=== PATIENT | male | born 1950 | race Caucasian/White ===

== ENCOUNTER 2024-03-24 18:02 | Inpatient (IN) | payer BC, MEDICAID ==
[~2024-03-24] VITALS: Ht 167.6 cm; Wt 54.4 kg
[2024-03-24 18:40] LABS: BASOPHILS % (AUTO) 1.1 % (0.0-2.0); EOSINOPHILS # (AUTO) 0.1 K/uL (0.0-0.7); HEMATOCRIT 34.1 % (36.7-47.1); HEMOGLOBIN 10.9 g/dL (12.5-16.3); LYMPHOCYTES # (AUTO) 1.8 K/uL (0.8-4.8); LYMPHOCYTES % (AUTO) 41.1 % (20.5-51.5); MEAN CORPUSCULAR HEMOGLOBIN 28.9 uug (23.8-33.4); MEAN CORPUSCULAR HGB CONC 32 g/dL (32.5-36.3); MEAN CORPUSCULAR VOLUME 90.5 fL (73.0-96.2); MONOCYTES # (AUTO) 0.5 K/uL (0.1-1.30); MONOCYTES % (AUTO) 11.5 % (0.0-11.0); NEUTROPHILS # (AUTO) 1.9 K/uL (1.8-8.9); NEUTROPHILS % (AUTO) 43.3 % (38.5-71.5); PLATELET COUNT (AUTO) 221 K/uL (152-348); RED BLOOD CELL COUNT(AUTO) 3.77 MIL/uL (4.06-5.63); RED CELL DISTRIBUTION WIDTH 13.9 % (12.1-16.2); WHITE BLOOD COUNT (AUTO) 4.3 K/uL (3.6-10.2)
[2024-03-24 18:46] LABS: CALCIUM 7.6 mg/dL (8.5-10.1); CARBON DIOXIDE 28 mmol/L (21-32); CHLORIDE 110 mmol/L (98-107); DIFFERENTIAL COMMENT 1; GLUCOSE 80 mg/dL (74-106); POTASSIUM 3.6 mmol/L (3.5-5.1); SODIUM SERUM 146 mmol/L (136-145); UREA NITROGEN, BLOOD 15 mg/dL (7-18)
[2024-03-24] MEDS: IV NORMAL SALINE 1000 ML BAG IV ONE (18:48)
[2024-03-24 18:52] LABS: ACETAMINOPHEN 3.1 ug/mL (10-30)
[2024-03-24 18:58] LABS: ETHANOL < 3 MG/DL (0-10)
[2024-03-24 18:59] LABS: ALANINE AMINOTRANSFERASE 61 U/L (16-63); ALBUMIN 2.7 g/dL (3.4-5.0); ALKALINE PHOSPHATASE 73 U/L (50-136); ASPARTATE AMINOTRANSFERASE 65 U/L (15-37); BILIRUBIN,DIRECT 0.2 mg/dL (0.0-0.2); BILIRUBIN,TOTAL 0.5 mg/dL (0.2-1.0); NT-PRO BNP 337 pg/mL (0-125); TOTAL PROTEIN, SERUM 5.8 g/dL (6.4-8.2)
[2024-03-24] MEDS ORDERED: LIDOCAINE 2% (GLYDO= UROJET) 10 ML JELLY MM ONE (20:45)
[2024-03-24] MEDS: LIDOCAINE 2% (GLYDO= UROJET) 10 ML JELLY MM ONE (20:50)
[2024-03-24 21:15] LABS: *BILIRUBIN,URIN NEGATIVE (NEGATIVE); *BLOOD, URINE NEGATIVE (NEGATIVE); *CLARITY,URINE CLEAR (CLEAR); *COLOR,URINE YELLOW (YELLOW); *KETONES,URINE NEGATIVE (NEGATIVE); *PROTEIN,URINE NEGATIVE (NEGATIVE); *UROBILINOGEN,URINE 0.2 E.U./dl (NORMAL); LEUKOCYTE ESTERASE ,URINE NEGATIVE (NEGATIVE); NITRITE, URINE NEGATIVE (NEGATIVE); PH,URINE 7.5 (5.0-8.0); UGLUCOSE NEGATIVE (NEGATIVE)
[2024-03-24 21:31] LABS: *AMPHETAMINE, URINE NEGATIVE (NEGATIVE); *BARBITURATE, URINE NEGATIVE (NEGATIVE); *BENZODIAZEPINE, URINE NEGATIVE (NEGATIVE); *CANNABINOID, URINE NEGATIVE (NEGATIVE); *COCCAINE, URINE NEGATIVE (NEGATIVE); *OPIATE, URINE NEGATIVE (NEGATIVE); *PHENCYCLIDINE SCREEN,URINE NEGATIVE (NEGATIVE); FENTANYL, URINE NEGATIVE (NEGATIVE)
[2024-03-25] MEDS ORDERED: MAGNESIUM HYDROXIDE 30 ML LIQUID UDC PO PRN (01:15)
[2024-03-25] MEDS ORDERED: REMEDY ESSENTIAL ZINC PASTE 113 GM TP PRN (01:15)
[2024-03-25] MEDS ORDERED: ACETAMINOPHEN 500 MG TABLET PO PRN (01:30)
[2024-03-25 01:50] VITALS: BP 127/81; TEMP 97.8; O2SAT 100
[2024-03-25] MEDS: ACETAMINOPHEN 325 MG TABLET PO PRN (02:19)
[2024-03-25] MEDS: GABAPENTIN 300 MG CAPSULE PO SCH (02:19)
[2024-03-25] MEDS: IV 1/2NS 1000 ML 1,000 ML IV PRN (02:25)
[2024-03-25 04:00] VITALS: BP 114/68; TEMP 99.3; O2SAT 95
[2024-03-25 07:02] LABS: BASOPHILS % (AUTO) 0.7 % (0.0-2.0); EOSINOPHILS # (AUTO) 0.2 K/uL (0.0-0.7); EOSINOPHILS % (AUTO) 2.7 % (0.0-7.0); HEMATOCRIT 36.3 % (36.7-47.1); HEMOGLOBIN 11.7 g/dL (12.5-16.3); LYMPHOCYTES # (AUTO) 1.5 K/uL (0.8-4.8); LYMPHOCYTES % (AUTO) 25.1 % (20.5-51.5); MEAN CORPUSCULAR HEMOGLOBIN 29.3 uug (23.8-33.4); MEAN CORPUSCULAR HGB CONC 32 g/dL (32.5-36.3); MEAN CORPUSCULAR VOLUME 90.6 fL (73.0-96.2); MONOCYTES # (AUTO) 0.5 K/uL (0.1-1.30); MONOCYTES % (AUTO) 8.5 % (0.0-11.0); NEUTROPHILS # (AUTO) 3.9 K/uL (1.8-8.9); PLATELET COUNT (AUTO) 223 K/uL (152-348); RED CELL DISTRIBUTION WIDTH 14.3 % (12.1-16.2); WHITE BLOOD COUNT (AUTO) 6.2 K/uL (3.6-10.2)
[2024-03-25 07:46] LABS: DIFFERENTIAL COMMENT 1
[2024-03-25 07:57] VITALS: BP 118/77; TEMP 98.4; O2SAT 100
[2024-03-25 07:57] LABS: ALANINE AMINOTRANSFERASE 53 U/L (16-63); ALBUMIN 2.5 g/dL (3.4-5.0); ALKALINE PHOSPHATASE 65 U/L (50-136); ASPARTATE AMINOTRANSFERASE 59 U/L (15-37); BILIRUBIN,DIRECT 0.2 mg/dL (0.0-0.2); BILIRUBIN,TOTAL 0.7 mg/dL (0.2-1.0); CALCIUM 7.8 mg/dL (8.5-10.1); CARBON DIOXIDE 26 mmol/L (21-32); CHLORIDE 108 mmol/L (98-107); GLUCOSE 106 mg/dL (74-106); MAGNESIUM 2.1 mg/dL (1.8-2.4); NT-PRO BNP 379 pg/mL (0-125); PHOSPHOROUS 2.6 mg/dL (2.5-4.9); POTASSIUM 3.9 mmol/L (3.5-5.1); SODIUM SERUM 140 mmol/L (136-145); TOTAL PROTEIN, SERUM 5.7 g/dL (6.4-8.2); UREA NITROGEN, BLOOD 12 mg/dL (7-18)
[2024-03-25 11:29] VITALS: BP 112/61; TEMP 98; O2SAT 97
[2024-03-25] MEDS ORDERED: CHOL400C8 PO (14:40)
[2024-03-25] MEDS ORDERED: FOLI1TAB94 PO (14:42)
[2024-03-25] MEDS ORDERED: PYRI-6 PO (14:42)
[2024-03-25] MEDS ORDERED: LEVO100T10 PO (14:42)
[2024-03-25] MEDS ORDERED: DOCU-141 PO (14:42)
[2024-03-25] MEDS ORDERED: LEVO88TA5 PO (14:42)
[2024-03-25] MEDS ORDERED: MECL-159 PO (14:42)
[2024-03-25] MEDS ORDERED: TAMS-3 PO (14:45)
[2024-03-25] MEDS ORDERED: LORA10TA7 PO (14:45)
[2024-03-25] MEDS ORDERED: ONDA-104 PO (14:45)
[2024-03-25] MEDS ORDERED: GABA300C PO (14:45)
[2024-03-25] MEDS ORDERED: ROPI1TAB6 PO (14:45)
[2024-03-25] MEDS ORDERED: HYDR-4174 RC (14:46)
[2024-03-25] MEDS ORDERED: SULF500T PO (14:48)
[2024-03-25 17:00] VITALS: BP 112/66; TEMP 98.3; O2SAT 97
[2024-03-25 19:20] LABS: THYROID STIMULATING HORMONE 9.877 mIU/mL (0.358-3.740)
[2024-03-25 20:00] VITALS: BP 127/74; TEMP 97.2; O2SAT 98
[2024-03-25] MEDS: TAMSULOSIN HCL 0.4 MG CAP.SR.24H PO SCH (21:39)
[2024-03-25] MEDS: LEVOTHYROXINE SODIUM 100 MCG TABLET PO SCH (22:07)
[2024-03-25] MEDS: FOLIC ACID 1 MG TABLET PO SCH (22:07)
[2024-03-26] VITALS: BP 116/61; TEMP 98.9; O2SAT 95
[2024-03-26 06:00] VITALS: BP 134/66; TEMP 97.7; O2SAT 97
[2024-03-26] MEDS: LEVOTHYROXINE SODIUM 88 MCG TABLET PO SCH (06:56)
[2024-03-26 07:26] VITALS: BP 119/80; TEMP 97.6; O2SAT 97
[2024-03-26] MEDS ORDERED: SULFASALAZINE 500 MG TABEC PO SCH ×2 (09:00→09:02)
[2024-03-26] MEDS ORDERED: SULFASALAZINE 500 MG TABLET PO SCH (09:00)
[2024-03-26 11:16] VITALS: BP 111/55; TEMP 98.5; O2SAT 96
[2024-03-26] MEDS: DOCUSATE SODIUM 100 MG CAPSULE PO SCH (11:41)
[2024-03-26] MEDS: ropiniROLE 1 MG TABLET PO SCH (11:42)
[2024-03-26] MEDS: SULFASALAZINE 500 MG TABEC PO SCH (15:03)
[2024-03-26 15:16] VITALS: BP 127/80; TEMP 97.9; O2SAT 97
[2024-03-26 20:00] VITALS: BP 134/74; TEMP 98.3; O2SAT 100
[2024-03-26] MEDS: MECLIZINE HCL 25 MG TABLET PO PRN (20:55)
[2024-03-27] VITALS: BP 130/76; TEMP 97.4; O2SAT 97
[2024-03-27 06:09] VITALS: BP 133/74; TEMP 97.9; O2SAT 99
[2024-03-27] MEDS: LEVOTHYROXINE SODIUM 88 MCG TABLET PO SCH (06:14)
[2024-03-27 08:07] VITALS: BP 112/91; TEMP 97.9; O2SAT 98
[2024-03-27] MEDS: HYDROCORTISONE 2.5 % RECTAL CREAM 28.35 GM TUBE RC PRN (10:19)
[2024-03-27 11:48] VITALS: BP 110/67; TEMP 98; O2SAT 96
[2024-03-27 13:07] VITALS: BP 138/68; TEMP 98; O2SAT 97
[2024-03-27 15:34] VITALS: BP 132/89; TEMP 98.4; O2SAT 96
[2024-03-28 00:32] VITALS: BP 151/83; TEMP 97.9; O2SAT 99
[2024-03-28 07:36] VITALS: BP 151/85; TEMP 99.7; O2SAT 97
[2024-03-28] MEDS: GABAPENTIN 300 MG CAPSULE PO PRN (08:49)
[2024-03-28 11:20] VITALS: BP 111/54; TEMP 100.1; O2SAT 94
[2024-03-29] MEDS ORDERED: LEVOTHYROXINE SODIUM 112 MCG TABLET PO SCH (07:00)
[2024-04-01] MEDS ORDERED: LEVOTHYROXINE SODIUM 100 MCG TABLET PO SCH (07:00)
== END 2024-03-28 15:15 | disposition home or self-care (01) | DRG 640 ==
LOC: ER 18:04 → TELE3 03-25 00:37 → MEDSURG3 03-28 09:05
PROVIDERS: ADMIT Nurse Practitioner Family
DX: E86.0 Dehydration (principal); G92.8 Other toxic encephalopathy; S22.018A Other fracture of first thoracic vertebra, initial encounter for closed fracture; I69.351 Hemiplegia and hemiparesis following cerebral infarction affecting right dominant side; Z59.02 Unsheltered homelessness; E86.1 Hypovolemia; W18.39XA Other fall on same level, initial encounter; Y93.01 Activity, walking, marching and hiking; Y92.89 Other specified places as the place of occurrence of the external cause; M50.91 Cervical disc disorder, unspecified, high cervical region; M48.02 Spinal stenosis, cervical region; R42 Dizziness and giddiness; M43.17 Spondylolisthesis, lumbosacral region; G62.9 Polyneuropathy, unspecified; E03.9 Hypothyroidism, unspecified
CPT/HCPCS: 36415; 70450; 71045; 72125; 72131; 72141; 72148; 83605; 83735; 83921; 84100; 84443; 84484; 85025; 85730; 87040; 93005; 93307; 93880; C1758; G0378; G0480; J7040; J8597